=== PATIENT | male | born 1955 | race Caucasian/White ===

== ENCOUNTER → 2016-12-27 | Outpatient (CLI) | payer BC, OTHER ==
[~2016-12-27] MED LIST: AVODART0.5 MG PO; BACTRIM,SEPT1 TABLET PO; CENTRUM SILVER1 EAC3 PO; CHILD ASPIRIN81 M1 PO; ENDOCET 5-3251 EACH PO; ERY-TAB500 MG PO; NEOMYCIN SULFA500 MG PO; RAPAFLO8 MG PO
== END | disposition home or self-care (01) ==
LOC: CDC 09:09
DX: Z01.810 Encounter for preprocedural cardiovascular examination (principal); K40.90 Unilateral inguinal hernia, without obstruction or gangrene, not specified as recurrent; R00.1 Bradycardia, unspecified; R94.31 Abnormal electrocardiogram [ECG] [EKG]
CPT/HCPCS: 93000

== ENCOUNTER 2017-01-05 09:59 | Day surgery (SDC) | payer BC, OTHER ==
[~2017-01-05] VITALS: Ht 182.9 cm; Wt 84.8 kg
[~2017-01-05 09:59] MED LIST changes: +VITAMIN B12-FO1 EACH PO; +VITAMIN D2000 UNI1 PO
[2017-01-05 10:41] VITALS: BP 165/82
[2017-01-05] MEDS ORDERED: NORCO 5/3251 TABLET PO (13:43)
[2017-01-05 15:00] VITALS: BP 156/73
[2017-01-05 16:00] VITALS: BP 156/73
[2017-01-05 16:45] VITALS: BP 168/83
== END 2017-01-05 17:05 | disposition home or self-care (01) ==
LOC: SDC 09:59
PROC: 0YU50JZ Supplement Right Inguinal Region with Synthetic Substitute, Open Approach (ICD-10-PCS; principal; 2017-01-05)
DX: K40.90 Unilateral inguinal hernia, without obstruction or gangrene, not specified as recurrent (principal); D17.6 Benign lipomatous neoplasm of spermatic cord; K42.9 Umbilical hernia without obstruction or gangrene; Z85.46 Personal history of malignant neoplasm of prostate; Z85.828 Personal history of other malignant neoplasm of skin; Z79.82 Long term (current) use of aspirin
CPT/HCPCS: C1781; J0330; J0690; J1100; J1170; J2250; J2405; J3010